=== PATIENT | male | born 1945 | race Caucasian/White ===

== ENCOUNTER 2024-05-17 11:08 | Day surgery (SDC) | payer MEDICARE, SELFPAY ==
[2024-05-17 11:38] VITALS: BP 128/69; PULSE 72; TEMP 36.1; O2SAT 98
[2024-05-17] MEDS: GENTAMICIN SULFATE 80 MG/2 ML VIAL INJ (11:42)
[2024-05-17] MEDS: LIDOCAINE 2% JELLY 20 ML UR (11:56)
[2024-05-17] MEDS: LIDOCAINE HCL 1% 100 MG/10 ML MDV 5 ML INJ (12:03)
--- NOTE | 2024-05-17 12:17 | PM.URSON ---
Urology Surgery Operative Note Operative Note Procedure Date: 05/17/24 Time Out Performed: yes Pre-op Diagnosis: Elevated PSA and prostate lesion by MRI Post-op Diagnosis: same as pre-op Procedures performed: Transrectal MRI fusion biopsies of the prostate Anesthesia: regional (Periprostatic block with 1% plain lidocaine) and local Primary Surgeon: Juan Nguyễn Complications: None Estimated blood loss (mL): 5 Specimens: 7 biopsies from the area of interest and 12 mapped out biopsies Indications for Procedures: This gentleman has an elevated PSA of 4.2. His prostate MRI revealed a lesion on the peripheral zone near the apex on the left side. This was rated a PI-RADS 5 lesion. He now presents for MRI fusion biopsies of the prostate. He has signed an informed consent after risks were explained. Detailed description of Procedure: The patient was kept on his gurney bed and brought into the operating room. He was rotated to the left lateral decubitus position. Timeout was done by all parties in the room. The rectum was swabbed with Betadine soaked gauze. 2% lidocaine gel was passed per rectum. The ultrasound probe from the [employer] system was passed per rectum. Segmentation was done while in the transverse view so as to superimpose the MRI images on the live ultrasound. A Mendez prostatic block with 1% lidocaine plain was then done in the usual fashion. At this time the area of interest was lined up and we took 7 biopsies from this area and sent them separately labeled area of interest. We then did mapped out biopsies first from the left side to from the base mid and apical regions and then on the right side in a similar fashion. The probe was removed. He was then discharged to home in good condition.
== END 2024-05-17 12:30 | disposition home or self-care (01) ==
PROVIDERS: Visit Provider Urology
PROC: (CPT 55700; principal; 2024-05-17 11:25)
DX: C61 Malignant neoplasm of prostate (principal); R97.20 Elevated prostate specific antigen [PSA]; N42.89 Other specified disorders of prostate; E11.9 Type 2 diabetes mellitus without complications; C85.90 Non-Hodgkin lymphoma, unspecified, unspecified site; E78.5 Hyperlipidemia, unspecified; Z90.5 Acquired absence of kidney; E78.00 Pure hypercholesterolemia, unspecified; K21.9 Gastro-esophageal reflux disease without esophagitis; Z79.84 Long term (current) use of oral hypoglycemic drugs; Z87.891 Personal history of nicotine dependence
CPT/HCPCS: 55700; J1580